=== PATIENT | female | born 1980 | race Hispanic/Latino ===

== ENCOUNTER 2016-11-17 20:38 | Inpatient (IN) | payer OTHER ==
[2016-11-17 22:13] VITALS: BMI 33.5
[2016-11-17 22:53] LABS: BASO # 0.1 K/uL (0.0-0.2); BASO % 0.9 % (0.0-2.0); EOS % 0.6 % (0.0-4.0); HEMATOCRIT 37.8 % (34.0-47.0); LYMPH # 2.3 K/uL (1.0-4.3); LYMPH % 29.8 % (20.0-40.0); MEAN CORPUSCULAR HEMOGLOBIN 30.5 pg (27.0-31.0); MEAN CORPUSCULAR HGB CONC 33.3 g/dL (33.0-37.0); MEAN PLATELET VOLUME 8.3 fl (7.2-11.7); MONO # 0.7 K/uL (0.0-0.8); MONO % 9.4 % (0.0-10.0); NEUT # 4.6 K/uL (1.8-7.0); NEUT % 59.3 % (50.0-75.0); NRBC % 0.1 % (0.0-0.0); RED CELL DISTRIBUTION WIDTH 14.4 % (11.5-14.5); WHITE BLOOD COUNT 7.8 K/uL (4.8-10.8)
[2016-11-17 22:54] LABS: MEAN CELL VOLUME 91.7 fl (81.0-99.0)
--- NOTE | 2016-11-17 23:25 | OBHP ---
Datetime: 11/17/2016 23:14 IP Adm Impression: Term, intrauterine IP Admit Plan: Admit to unit; Initiate labor induction protocol Admit Comment, IP Provider: [id number] edc 11/24 by lmp _ 7wk us for induction 2ndary to polyhydramni os an ama. she denies decreased fm, reg ctxs, srom or vag bleeding obhx: x1 pmhx _ pshx denies nkda medic: pnv shx: denies etoh, drugs or tobacco i: 39wks polyh ama p: admit for induction cervidel Pelvic Type - PN: Adequate Extremities - PN: Normal Abdomen - PN: Normal Heart - PN: Normal Neurologic - PN: Normal HEENT - PN: Normal General - PN: Normal Presentation-Admit: Vertex FHR - Baseline A Provider: 120 Membranes, Provider: Intact Contraction Comments Provider: irreg EGA AdmitDate IP: 39.0 Vital Signs Provider: Within Normal Limits IP Chief Complaint: Scheduled induction of labor NICHD Variability Prov Fetus A: Moderate 6-25bpm NICHD Accel Fetus A IP Provider: [id number] FHR Category Provider Fetus A: Category I NICHD Decel Fetus A IP Provider: None Dilatation, Provider: 0 Effacement, Provider: 0 Station, Provider: -4 Genitourinary Exam: Normal
[2016-11-18 02:59] VITALS: BP 110/74; PULSE 81; RESP 18; TEMP 97.1; O2SAT 99
[2016-11-18] MEDS ORDERED: Lactated Ringer's 1,000 ML IV SCH (12:15)
[2016-11-18] MEDS: Lactated Ringer's 1,000 ML IV SCH ×2 (12:20→19:00)
[2016-11-18] MEDS ORDERED: Oxytocin 30 units/LR 500ML 30 U/500 ML BAG IV ONE ×2 (15:29→23:46)
[2016-11-18] MEDS ORDERED: Fentanyl/Bupivacaine HCl 250 ML EPI ONE (17:02)
[2016-11-18] MEDS ORDERED: Penicillin G 5 Million Unit Vial IVPB ONE (17:51)
--- NOTE | 2016-11-18 23:45 | OBDS ---
MATERNAL INFORMATION Provider Comments: Delivered a live baby boy at 11:29 PM. He was bulb suctioned on the perineum and transferred to maternal chest. The cord was clamped and cut 3 vessels noted. Cord blood was obtained and sent to the lab. Placenta was delivered at 11:34 PM intact, estimated blood loss was 150 mL. Harvey ryland was infused for uterine involution. The mother tolerated the procedure well the baby went to the [facility] baby [facility] with Apgars 9 and 9 weighing 3290 g LABOR SUMMARY EDC: 11/24/2016 00:00 LABOR INFORMATION Reason for Induction: Polyhydramnios Onset of Labor: 11/18/2016 12:10 Cervical Ripening Agents: Cervidil MEMBRANES Membranes Rupture Method: Artificial Rupture of Membranes: 11/18/2016 12:10 Amniotic Fluid Color: Clear Amniotic Fluid Amount: Large Amniotic Fluid Odor: Normal VAGINAL DELIVERY Episiotomy: None Laceration Extension: First Degree Laceration Type: Vaginal Laceration Repair Note: 2.o rapide Sponge Count Correct: Yes Sharps Count Correct: Yes IDENTIFICATION/MEDS BABY A ID Band Number: [id number]
[2016-11-18] MEDS ORDERED: Oxycodone/Acetaminophen 5/325 mg Tab PO PRN ×2 (23:46)
[2016-11-19] MEDS ORDERED: Oxycodone/Acetaminophen 5/325 mg Tab PO PRN ×2 (01:06)
[2016-11-19 06:53] LABS: HEMATOCRIT 34.4 % (34.0-47.0); MEAN CORPUSCULAR HEMOGLOBIN 30.8 pg (27.0-31.0); MEAN CORPUSCULAR HGB CONC 33.5 g/dL (33.0-37.0); RED CELL DISTRIBUTION WIDTH 14.3 % (11.5-14.5); WHITE BLOOD COUNT 15.7 K/uL (4.8-10.8)
--- NOTE | 2016-11-19 12:52 | OBPPN ---
Datetime: 11/19/2016 07:58 PP Pain Prov: Within normal limits PP Nausea Prov: Denies PP Flatus Prov: No PP BM Prov: No PP Breasts Prov: Normal PP Heart Prov: Normal PP Lungs Prov: Normal PP Abdomen/Uterus Prov: Normal PP Lochia Prov: Normal PP Vulva/Perineum Prov: Not Done PP CVA Tenderness Prov: Not Done PP Extremities Prov: Normal PP C/S Incision Prov: Not Applicable PP Progress Prov: Normal PP Impression Prov: Normal progression PP Plan Prov: Continue present management PP Progress Note Prov: 36 y/o now seen and examined at bedside. Patient delivered via las t night. Patient reports mild pelvic pain controlled w/ pain meds. OOB/Ambulating w/o dizziness. B reast/bottle feeding w/o difficulty. Tolerating PO diet well. Lochia is less than menses in volume. Voiding freely w/ no blood noted. Reports no bowel movement. Denies fevers, chills, n/v/d, CP/SOB , lightheadedness and calf pain. PE: GEN: A_O, resting comfortably in bed, NAD Lung: CTA B/L, no wheezing, rhonchi, or rales CVS: S1, S2 wnl, RRR Abd: +BS, firm fundus below umbilicus. EXT: no edema, negative Brandon's, calves non-tender Assessment: 36 y/o now s/p on 11/18/2016 @ 23:29 tolerating pain w/ medication, tolerati ng oral intake, adequate urine output, doing well on PPD1. Plan: Percocet 5/325 mg 1-2 tabs PO Q6h prn for mod/severe pain. Ibuprofen 600 mg 1 tab Q6h PO pr n for mild pain. Encourage breast feeding and ambulation. Eddie Alford M.D. Presser Hand PGY-1 obh addendum: pt seen _ exmined by me. agree with above assessment and plan. p: pt desires circ for . informed consent obtained. she understands is an elective proced ure performed per pt preference. risks d/w pt. IP PP Procedures: None Vital Signs Provider PP: Reviewed; Within Normal Limits
--- NOTE | 2016-11-20 10:11 | OBDCSUM ---
Datetime: 11/20/2016 05:42 Discharged to, Provider: Home Follow up at, Provider: [facility] Disch Instr Activity: Normal activity Disch Instr Diet: Regular Discharge Instructions, Provider: Routine instructions given Discharge Diagnosis, Provider: Term Delivered Discharge Time: 11/20/2016 05:42 Follow up in weeks, Provider: 6 weeks Disch Referrals: None Contraception discussed, Prov: Yes Disch Activity Restrictions: No sexual activity; Nothing in vagina - Rover, tampons, douche Discharge Comment, Provider: any worsening bleeding, abdominal pain, fever/chills return to ED. OB Hospitalist on-call. I saw and examined this patient on rounds. Agree with note. LEIGH Grajeda home and follow up in 6w Contraception after Delivery: Undecided
--- NOTE | 2016-11-20 10:11 | OBPPN ---
Datetime: 11/20/2016 05:50 PP Pain Prov: Within normal limits PP Nausea Prov: Denies PP Flatus Prov: Yes PP BM Prov: Yes PP Breasts Prov: Normal PP Heart Prov: Normal PP Lungs Prov: Normal PP Abdomen/Uterus Prov: Normal PP Lochia Prov: Normal PP Vulva/Perineum Prov: Normal PP CVA Tenderness Prov: Normal PP Extremities Prov: Normal PP C/S Incision Prov: Not Applicable PP Progress Prov: Normal PP Comments Phys Exam Prov: fundus firm below level of umbilicus PP Impression Prov: Normal progression PP Plan Prov: Continue present management; Discharge PP Progress Note Prov: pt seen and examined at bedside. No acute events overnight. No new complaints . Pain is tolerated without medicaitons. OOB/ambulating without dizziness. Tolerating PO intake witho ut diffculty. with ease. +BM. Bleeding is minimal. Denies fever/chills, headaches, chisholm ges in vision, CP/SOB, N/V/D/C, urinary symptoms, numbness/tingling. A/P: 36 y/o s/p on 11/18 doing well on PPD#2. -Discharge home today -Ibuprofen 650mg PO PRN Q6H for mild/mod pain -OOB/ambulate -regular activity - encouraged -nothing per vagina -f/u at [facility] in 6 weeks -ED precautions Taz Pichardo MD PGY1 @ 5:56am OB Hospitalist on-call. I saw and examined this patient on rounds. Agree with note. LEIGH Grajeda home and follow up in 6w IP PP Procedures: None Vital Signs Provider PP: Reviewed; Within Normal Limits
[2016-11-20] MEDS ORDERED: Benzocaine/Menthol SPRAY ONE (11:56)
[2016-11-20] MEDS ORDERED: Lansinoh for Breast Feeding Mothers TP ONE (11:56)
== END 2016-11-20 13:45 | disposition home or self-care (01) | DRG 373 ==
LOC: H.EROB2 20:38 → H.L&D 22:15 → H.OB/GYN 11-19 01:30
PROVIDERS: ADMIT Obstetrics & Gynecology; ATTEND Obstetrics & Gynecology
PROC: 3E033VJ Introduction of Other Hormone into Peripheral Vein, Percutaneous Approach (ICD-10-PCS; principal; 2016-11-17)
PROC: 4A1HXCZ Monitoring of Products of Conception, Cardiac Rate, External Approach (ICD-10-PCS; 2016-11-17)
PROC: 10E0XZZ Delivery of Products of Conception, External Approach (ICD-10-PCS; 2016-11-18)
PROC: 0HQ9XZZ Repair Perineum Skin, External Approach (ICD-10-PCS; 2016-11-18)
DX: O40.3XX0 Polyhydramnios, third trimester, not applicable or unspecified (principal); O70.0 First degree perineal laceration during delivery; Z37.0 Single live birth; Z3A.39 39 weeks gestation of pregnancy